=== PATIENT | male | born 1975 | race Caucasian/White ===

== ENCOUNTER 2018-04-04 10:34 | Emergency (ER) | payer OTHER ==
--- OUTSIDE RECORDS SUMMARY | 2018-04-04 10:35 | XMS REPORT | Continuity of Care Document ---
:1975 Author Organization Interface Problems Problem Status Onset Date Classification Date Comments Source Reported Medications Medication Details Route Status Patient Ordering Order Source Instructions Provider Date Allergies, Adverse Reactions, Alerts Substance Category Reaction Severity Reaction Status Date Comments Source type Reported Immunizations Immunization Date Given Site Status Last Updated Comments Source Results Order Results Value Reference Date Interpretation Comments Source Name Range Vital Signs Vital Sign Value Date Comments Source Encounters Location Location Encounter Encounter Reason Attending ADM DC Status Source Details Type Number For Provider Date Date Visit Outpatient [id number] EDU 12/28 [facility] [id number] EDU 01/04 [facility] [id number] EDU 03/[address] Procedures Procedure Code Date Perfomer Comments Source
--- NOTE | 2018-04-04 11:36 | RAD REPORT ---
EXAM DESCRIPTION: CT - Stone Protocol - 04/04/2018 11:26 am CLINICAL HISTORY: Flank pain. ABD PAIN COMPARISON: No comparisons TECHNIQUE: Axial images were obtained without oral or IV contrast. Lack of contrast limits solid org an and vascular assessment. The [id number] spans the entirety of the system partially obscuring uppermost abdomen and lung bases. Coronal reformatted images were obtained and reviewed. All CT scans are performed using dose optimization technique as appropriate and may include automated exposure control or mA/KV adjustment according to patient size. FINDINGS: The lower lung [place] are clear. Imaged portions of the liver and spleen show no suspicious findings on non-contrast imaging. The panc reas and adrenal glands are normal. No pathologic lymphadenopathy in the abdomen or pelvis. There is a 4 mm stone in the urinary bladder dependently. This may have recently passed from the left system as there is mild residual left hydronephrosis and hydroureter. No right-sided hydronephros is or stone seen. No bowel obstruction, free air, free fluid or abscess. The appendix is not identified as a discrete s tructure, however, no secondary findings of appendicitis are identified. No significant bony abnormality. IMPRESSION: 4 mm stone in the urinary bladder is noted, suspected to be recently passed from the lef t system. Mild residual left-sided hydronephrosis and hydroureter.
[2018-04-04 11:53] LABS: Urine Bacteria <20 /HPF (NONE SEEN); Urine Culture Reflex Order REFLEXED; Urine Mucus 2+ /HPF (NONE SEEN); Urine RBC 20-50 /HPF (NONE SEEN)
[2018-04-04 12:03] LABS: Absolute Lymphocytes (CBC) 0.9 K/uL (0.7-4.9); Absolute Monocytes 0.4 K/uL (0.1-1.3); Absolute Neutrophil 5.7 K/uL (1.8-8.0); Basophils % 0.4 % (0-1.3); Eosinophils % 0.7 % (0-4.4); Hematocrit 46.7 % (39.6-49.0); Lymphocytes % 12.6 % (15.3-44.8); Monocytes % 5.3 % (3.3-12.3); RBC Red Blood Cell Count 5.25 M/uL (4.33-5.43)
[2018-04-04 12:05] LABS: Potassium 4.6 mmol/L (3.5-5.1)
--- NOTE | 2018-04-04 12:08 | ER ---
Nurse's Notes [facility] Name: Ayo Sharma Age: 43 yrs Sex: Male : 1975 Arrival Date: 04/04/2018 Time: 10:35 Bed 23 Private MD: Yan Bolanos R Diagnosis: Calculus of kidney and ureter Presentation: 04/04 11:08 Presenting complaint: Patient states: Burning pain in groin and L flank pain that began ph at approx 0800 today, reports hx of kidney stones, denies fever N/V. Transition of care: patient was not received from another setting of care. Onset of symptoms was April 04, 2018. Risk Assessment: Do you want to hurt yourself or someone else? Patient reports no desire to harm self or others. Initial Sepsis Screen: Does the patient meet any 2 criteria? No. Patient's initial sepsis screen is negative. Does the patient have a suspected source of infection? No. Patient's initial sepsis screen is negative. Care prior to arrival: None. 11:08 Method Of Arrival: Ambulatory ph 11:08 Acuity: DENISHA 3 ph Historical: - Allergies: 11:12 No Known Allergies; ph - Home Meds: 11:12 Seroquel 400 mg Oral tab 1 tab 2 times per day [Active]; Zoloft 75 mg Oral once daily ph [Active]; Klonopin 0.5 mg Oral tab 1 tab 2 times per day [Active]; Seroquel 25 mg Oral tab 1 tab 3 times per day [Active]; - PMHx: 11:12 Depression; ph - Immunization history:: Adult Immunizations unknown. - Social history:: Smoking status: Patient/guardian denies using tobacco. - Ebola Screening: : No symptoms or risks identified at this time. Screenin:14 Abuse screen: Denies threats or abuse. Denies injuries from another. Nutritional ph screening: No deficits noted. Tuberculosis screening: No symptoms or risk factors identified. Fall Risk None identified. Assessment: 11:13 General: Appears in no apparent distress. comfortable, slender, Behavior is calm, ph cooperative, appropriate for age, Denies fever. Pain: Complains of pain in anterior aspect of left lateral abdomen and posterior aspect of left lateral abdomen Pain radiates to groin. Neuro: Level of Consciousness is awake, alert, obeys commands, Oriented to person, place, time, situation. Cardiovascular: Capillary refill < 3 seconds in bilateral fingers Patient's skin is warm and dry. Respiratory: Airway is patent Respiratory effort is even, unlabored. GI: Abdomen is flat, non-distended, Bowel sounds present X 4 quads. Abd is soft and non tender X 4 quads. Reports lower abdominal pain, Patient currently denies nausea, vomiting. : Reports burning with urination, pain in left in suprapubic area flank(s). Derm: Skin is intact, is healthy with good turgor, Skin is pink, warm \T\ dry. Musculoskeletal: Circulation, motion, and sensation intact. Range of motion: intact in all extremities. 11:32 Reassessment: Patient appears in no apparent distress at this time. Patient and/or ss family updated on plan of care and expected duration. Pain level reassessed. Patient is alert, oriented x 3, equal unlabored respirations, skin warm/dry/pink. pt reports pain has subsided completely for now and does not want any medication at this time. Patient denies pain at this time. Patient states feeling better. Patient states symptoms have improved. Vital Signs: 11:12 BP 118 / 91; Pulse 78; Resp 18; Temp 97.6; Pulse Ox 98% on R/A; Weight 78.47 kg; Height ph 5 ft. 11 in. (180.34 cm); Pain 1/10; 11:12 Body Mass Index 24.13 (78.47 kg, 180.34 cm) ph ED Course: 10:35 Patient arrived in ED. as 10:36 Yan Bolanos MD is Private Physician. as 11:02 Rom Cline MD is Attending Physician. gs 11:09 Triage completed. ph 11:12 Arm band placed on Patient placed in an exam room. ph 11:14 Patient has correct armband on for positive identification. Bed in low position. Call ph light in reach. Side rails up X 1. Pulse ox on. NIBP on. 11:27 CT Stone Protocol In Process Unspecified. EDMS 11:31 Ninoska Tamez, PAUL is Primary Nurse. ss 11:31 Inserted saline lock: 22 gauge in left antecubital area, using aseptic technique. Blood ss collected. 11:50 No provider procedures requiring assistance completed. IV discontinued, intact, ss bleeding controlled, No redness/swelling at site. Pressure dressing applied. 12:07 Claudia Santos MD is Referral Physician. gs Administered Medications: 11:50 Not Given (Patient Refused; denies pain at this time): TORadol 30 mg IVP once Outcome: 12:08 Discharge ordered by . 12:25 Discharged to home ambulatory, with family. ss 12:25 Condition: good 12:25 Discharge instructions given to patient, family, Instructed on discharge instructions, follow up and referral plans. medication usage, Demonstrated understanding of instructions, follow-up care, medications, Prescriptions given X 1. 12:26 Patient left the ED. Signatures: Dispatcher [employer] EDMS Cookie Fletcher Shelby, RN RN Teresa Galvan RN RN Rom Cline MD MD
--- NOTE | 2018-04-04 12:08 | EDPHYS ---
Physician Documentation [facility] Name: Ayo Sharma Age: 43 yrs Sex: Male : 1975 Arrival Date: 04/04/2018 Time: 10:35 Bed 23 Private MD: Yan Bolanos R ED Physician Rom Cline HPI: 04/04 12:05 This 43 yrs old Male presents to ER via Ambulatory with complaints of gs Possible Kidney Stone. 12:05 The patient complains of pain in the left low back. The pain radiates to the left lower gs quadrant. Onset: The symptoms/episode began/occurred acutely. Modifying factors: The symptoms are alleviated by nothing. the symptoms are aggravated by nothing. Associated signs and symptoms: Pertinent positives: dysuria. Severity of pain: At its worst the pain was moderate in the emergency department the pain has improved moderately. The patient has experienced a previous episode. The patient has not recently seen a physician. Historical: - Allergies: 11:12 No Known Allergies; ph - Home Meds: 11:12 Seroquel 400 mg Oral tab 1 tab 2 times per day [Active]; Zoloft 75 mg Oral once daily ph [Active]; Klonopin 0.5 mg Oral tab 1 tab 2 times per day [Active]; Seroquel 25 mg Oral tab 1 tab 3 times per day [Active]; - PMHx: 11:12 Depression; ph - Immunization history:: Adult Immunizations unknown. - Social history:: Smoking status: Patient/guardian denies using tobacco. - Ebola Screening: : No symptoms or risks identified at this time. ROS: 12:05 All other systems are negative. gs Exam: 12:05 Head/Face: Normocephalic, atraumatic. Eyes: Pupils equal round and reactive to light, gs extra-ocular motions intact. Lids and lashes normal. Conjunctiva and sclera are non-icteric and not injected. Cornea within normal limits. Periorbital areas with no swelling, redness, or edema. ENT: Nares patent. No nasal discharge, no septal abnormalities noted. Tympanic membranes are normal and external auditory canals are clear. Oropharynx with no redness, swelling, or masses, exudates, or evidence of obstruction, uvula midline. Mucous membranes moist. Neck: Trachea midline, no thyromegaly or masses palpated, and no cervical lymphadenopathy. Supple, full range of motion without nuchal rigidity, or vertebral point tenderness. No Meningismus. Chest/axilla: Normal chest wall appearance and motion. Nontender with no deformity. No lesions are appreciated. Cardiovascular: Regular rate and rhythm with a normal S1 and S2. No gallops, murmurs, or rubs. Normal PMI, no JVD. No pulse deficits. Respiratory: Lungs have equal breath sounds bilaterally, clear to auscultation and percussion. No rales, rhonchi or wheezes noted. No increased work of breathing, no retractions or nasal flaring. Abdomen/GI: Soft, non-tender, with normal bowel sounds. No distension or tympany. No guarding or rebound. No evidence of tenderness throughout. Skin: Warm, dry with normal turgor. Normal color with no rashes, no lesions, and no evidence of cellulitis. MS/ Extremity: Pulses equal, no cyanosis. Neurovascular intact. Full, normal range of motion. Neuro: Awake and alert, GCS 15, oriented to person, place, time, and situation. Cranial nerves II-XII grossly intact. Motor strength 5/5 in all extremities. Sensory grossly intact. Cerebellar exam normal. Normal gait. 12:05 Constitutional: The patient appears alert, awake. 12:05 Back: CVA tenderness, that is moderate, is noted on the left. Vital Signs: 11:12 BP 118 / 91; Pulse 78; Resp 18; Temp 97.6; Pulse Ox 98% on R/A; Weight 78.47 kg; Height ph 5 ft. 11 in. (180.34 cm); Pain 110; 11:12 Body Mass Index 24.13 (78.47 kg, 180.34 cm) ph MDM: 11:10 Patient medically screened. gs 12:05 Differential diagnosis: nephrolithiasis, pyelonephritis, UTI. Data reviewed: vital gs signs, nurses notes. Counseling: I had a detailed discussion with the patient and/or guardian regarding: the historical points, exam findings, and any diagnostic results supporting the discharge/admit diagnosis, lab results, radiology results. Response to treatment: the patient's symptoms have resolved after treatment, the patient's pain is gone. 04/04 11:13 Order name: Basic Metabolic Panel 04/04 11:13 Order name: CBC with Diff 04/04 11:13 Order name: Urine Microscopic Only 04/04 11:13 Order name: CT Stone Protocol; Complete Time: 11:38 04/04 11:29 Order name: Urine Dipstick--Ancillary (enter results) 04/04 11:55 Order name: Urine Culture [facility] 04/04 11:13 Order name: IV Saline Lock; Complete Time: 11:31 04/04 11:13 Order name: Labs collected and sent; Complete Time: 11: 04/04 11:13 Order name: Urine Dipstick-Ancillary (obtain specimen); Complete Time: 11:31 Administered Medications: 11:50 Not Given (Patient Refused; denies pain at this time): TORadol 30 mg IVP once ss Disposition: 04/04/18 12:08 Discharged to Home. Impression: Calculus of kidney and ureter. - Condition is Stable. - Discharge Instructions: Kidney Stones, Urinary Tract Infection, Adult. - Prescriptions for Keflex 500 mg Oral Capsule - take 1 capsule by ORAL route every 8 hours for 7 days; 21 capsule. - Work release form, Medication Reconciliation Form, Thank You Letter, Antibiotic Education, Prescription Opioid Use form. - Follow up: Claudia Santos MD; When: 2 - 3 days; Reason: Re-evaluation by your physician. Signatures: Dispatcher [employer] Ninoska Cárdenas RN RN Teresa Monsivais RN RN Rom Cline MD MD Corrections: (The following items were deleted from the chart) 12:26 12:08 04/04/2018 12:08 Discharged to Home. Impression: Calculus of kidney and ureter. ss Condition is Stable. Forms are Medication Reconciliation Form, Thank You Letter, Antibiotic Education, Prescription Opioid Use. Follow up: Claudia Santos; When: 2 - 3 days; Reason: Re-evaluation by your physician.
[2018-04-04 20:03] LABS: Urine Blood 3+ (NEG); Urine Glucose NEGATIVE (NEG); Urine Protein NEGATIVE (NEG); Urine pH 5.5 (5.0-7.0)
== END 2018-04-04 12:26 | disposition home or self-care (01) ==
LOC: ER 10:34
DX: N13.2 Hydronephrosis with renal and ureteral calculous obstruction (principal); F32.9 Major depressive disorder, single episode, unspecified; Z79.899 Other long term (current) drug therapy
CPT/HCPCS: 36415; 74176; 76377; 80048; 81003; 81015; 85025; 87086; 87088; 99284